=== PATIENT | female | born 1965 | race Caucasian/White ===

== ENCOUNTER → 2022-10-20 13:01 | Outpatient (CLI) | payer SELFPAY ==
--- NOTE | ~2022-10-20 | XR_ITS ---
EXAMINATION: XR femur LT min 2V DATE: 10/20/2022 13:51 INDICATION: Left lower limb pain. TECHNIQUE: 2 views of left femur on 5 radiographs were obtained. COMPARISON: None. FINDINGS: Bone alignment is normal. No fracture. There is mild left hip and knee osteoarthritis. No k nee joint effusion. IMPRESSION: 1. Mild polyarticular osteoarthritis. Reviewed, dictated and finalized at location A.
== END ==
PROVIDERS: PCP Pediatrics; Visit Provider Pediatrics
DX: M19.072 Primary osteoarthritis, left ankle and foot (principal)
CPT/HCPCS: 73552

== ENCOUNTER → 2023-04-16 11:23 | Outpatient (CLI) | payer SELFPAY ==
--- NOTE | ~2023-04-16 | US_ITS ---
EXAMINATION: US soft tissue LE LT DATE: 04/16/2023 11:43 INDICATION: Left thigh pain TECHNIQUE: Multiple grayscale and Doppler ultrasound images of the region of concern at the posterior left upper leg were obtained. COMPARISON: Left femur radiographs dated 10/20/2022 FINDINGS: Normal appearance to the subcutaneous fat and visualized portion of the underlying musculature at the region of concern. No abnormal masses or fluid collections identified. IMPRESSION: 1. Normal study. No abnormal masses or fluid collections identified at the region of concern. Reviewed, dictated and finalized at location A. 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 Normal study. No abnormal masses or fluid collections identified at the sue on of concern.
== END ==
PROVIDERS: PCP Pediatrics; Visit Provider Pediatrics
DX: M79.652 Pain in left thigh (principal)
CPT/HCPCS: 76882